=== PATIENT | female | born 1965 | race Caucasian/White ===

== ENCOUNTER 2017-04-23 23:11 | Emergency (ER) | payer SELFPAY ==
[~2017-04-23] VITALS: Ht 165.1 cm; Wt 130.0 kg
[2017-04-23 23:12] VITALS: BP 143/92; PULSE 76; RESP 16; TEMP 98; O2SAT 99
[2017-04-23] MEDS ORDERED: [UNRECOGNIZED DRUG - OTHER] (23:24)
--- NOTE | 2017-04-24 00:05 | PD ---
HPI Chief Complaint: Back/ Neck Pain or Injury Time Seen by Provider: 00:01 Travel History International Travel<30 days: No Contact w/Intl Traveler<30days: No Traveled to known affect area: No History of Present Illness HPI 52-year-old white female presents to emergency department with complains of worsening chronic lower back pain. She also states that she periodically will have pain in her right upper back which radiates up into her right side. 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 She denies any acute trauma. No acute bowel or bladder changes. No focal weakness. She states that her left leg does give out on her on occasion but this is been going on now for 4 years without change. She has not seen a doctor regarding this yet. She has not had any imaging studies. History Past Medical Histgory Narrative Medical Uterine carcinoma, chronic back pain Hx Cancer: Yes (UTERINE ) Past Surgical History Narrative Surgical Total hysterectomy Social History Alcohol Use: Yes (OCCA. ) Tobacco Use: No Allergies-Medications (Allergen,Severity, Reaction): Coded Allergies: Lodine (Verified Adverse Reaction, Unknown, Hives, 04/23/17) Reported Meds & Prescriptions Reported Meds & Active Scripts Active Reported Tylenol Cold Max Night Liquid (Dm/PE/Acetaminophen/Doxylamine) 240 Ml Liquid Review of Systems Except as stated in HPI: all other systems reviewed are Neg Musculoskeletal: Positive: Myalgias, Arthralgias, Limited ROM, Cramping, Pain, No: Edema Physical Exam Narrative GENERAL: This is a well-nourished, well-developed patient, in no apparent distress. SKIN: No rashes, ecchymoses or lesions. Warm and dry. HEAD: Atraumatic. Normocephalic. EYES: PERRL, EOMI, no discharge or injection. No scleral icterus. EARS: Clear NOSE: Nasal turbinates appear normal. THROAT: Mucosa pink and moist. Airway patent. NECK: Trachea midline. supple, moves head freely. LUNGS: Clear to auscultation. CV: Regular in rhythm. ABDOMEN: Soft nontender. Back: No central bony tenderness to palpation of dorsal lumbar spine. Patient complains of right lower thoracic upper lumbar myofascial tenderness. She also complains of tenderness to the lower SI joints bilaterally. No saddle anesthesia. Decreased range of motion due to pain. EXT: No clubbing cyanosis or edema. Data Data Last Documented VS Vital Signs Date Time Temp Pulse Resp B/P Pulse Ox O2 Delivery O2 Flow Rate FiO2 04/23/17 23:12 98.0 76 16 143/92 99 Room Air MDM Medical Screen Exam Complete: Yes Emergency Medical Condition: No Differential Diagnosis MDM: High Differential diagnoses: AAA,Fracture, sprain, strain, HNP, nerve or vascular injury, epidural abscess, pilonidal cyst, pyelonephritis, UTI, nephrolithiasis, ureterolithiasis acute or chronic back pain acute or chronic Narrative Course A medical screening exam was performed: At the time of evaluation the presenting medical condition was determined not to be of an emergent nature. The patient was given the option of receiving additional care, but declined. Patient was given options for additional community resources from which to obtain care. The Patient Has Been advised to seek medical attention for their presenting complaint. The patient has been advised to return to the ER at any time if an emergent condition develops. Primary Impression: Encounter for medical screening examination Condition: Rafiq Khalil Apr 24, 2017 00:05
== END 2017-04-24 00:01 | disposition left against medical advice (07) ==
LOC: NEPK 23:11
DX: M54.9 Dorsalgia, unspecified (principal)
CPT/HCPCS: 99281